=== PATIENT | male | born 1960 | race Caucasian/White ===

== ENCOUNTER 2018-02-26 09:01 | Day surgery (SDC) | payer OTHER ==
[2018-02-26] MEDS ORDERED: ROPIvacaine 0.5% 30 ML INJECTION (J2795 PER 1MG) (09:02)
[2018-02-26] MEDS ORDERED: dexameTHASONE 10 MG/1 ML VIAL PRES.FREE (J1100) (09:02)
[2018-02-26] MEDS: LR 1,000 ML IV ×3 (09:54→18:25)
[2018-02-26 09:56] LABS: BEDSIDE GLUCOSE 109 MG/DL (70-105)
[2018-02-26] MEDS ORDERED: MIDAZOLAM INJ 2 MG/2 ML VIAL (J2250) As Ordered ×2 (10:47→12:31)
[2018-02-26] MEDS ORDERED: fentaNYL 100 MCG/2 ML INJECTION (J3010) As Ordered (10:47)
[2018-02-26] MEDS: MIDAZOLAM INJ 2 MG/2 ML VIAL (J2250) IV (11:30)
[2018-02-26] MEDS: fentaNYL 100 MCG/2 ML INJECTION (J3010) IV ×5 (11:30→17:13)
[2018-02-26] MEDS ORDERED: LIDOCAINE 2% INJ 100 MG/5 ML SDV (FOR ANES.) As Ordered (12:31)
[2018-02-26] MEDS ORDERED: GLYCOPYRROLATE INJ 0.2 MG/ML 2 ML VIAL As Ordered (12:31)
[2018-02-26] MEDS ORDERED: NEOSTIGMINE 10 MG/10 ML VIAL (J2710) As Ordered (12:31)
[2018-02-26] MEDS ORDERED: METOCLOPRAMIDE INJ 10MG/2ML VIAL (J2765) As Ordered (12:31)
[2018-02-26] MEDS ORDERED: PROPOFOL 200 MG/20 ML VIAL As Ordered (12:31)
[2018-02-26] MEDS ORDERED: fentaNYL 250 MCG/5 ML INJECTION (J3010) As Ordered (12:31)
[2018-02-26] MEDS ORDERED: ROCURONIUM BROMIDE 50 MG/5 ML VIAL As Ordered ×2 (12:31→12:52)
[2018-02-26] MEDS ORDERED: dexameTHASONE 4 MG/ML 1ML VIAL (J1100) As Ordered (12:31)
[2018-02-26] MEDS ORDERED: ONDANSETRON 4MG/2ML VIAL (J2405) As Ordered (12:31)
[2018-02-26] MEDS ORDERED: PHENYLephrine HCL 500 MCG/5 ML (100MCG/ML) SYRINGE (J2370) As Ordered (12:59)
[2018-02-26] MEDS: EPINEPHrine 1MG/ML INJ 30ML MD-VIAL As Ordered (13:04)
[2018-02-26] MEDS ORDERED: DESFLURANE 240 ML INHALANT As Ordered (14:26)
[2018-02-26] MEDS ORDERED: ALBUTEROL SULFATE 2.5 MG/0.5 ML INH NEB SOLN As Ordered (15:29)
[2018-02-26] MEDS: ALBUTEROL SULFATE 2.5 MG/0.5 ML INH NEB SOLN INH (15:30)
[2018-02-26] MEDS: NORCO, ANEXSIA 5/325MG TABLET (HYDROcodone/ACETAMINOPHEN) PO (15:55)
[2018-02-26] MEDS ORDERED: ONDANSETRON 4MG/2ML VIAL (J2405) IV (16:15)
[2018-02-26] MEDS ORDERED: NORCO, ANEXSIA 5/325MG TABLET (HYDROcodone/ACETAMINOPHEN) PO (16:30)
[2018-02-26] MEDS ORDERED: MORPHINE 4 MG/ML 1ML VIAL/SYRINGE (J2270) IV (16:30)
[2018-02-26] MEDS ORDERED: IPRATROPIUM 0.5MG/ALBUTEROL 2.5MG INH SOL UD 3ML (DUONEB)(J7620) NEB (17:00)
[2018-02-26] MEDS ORDERED: DEXTROSE 50% 50 ML SYRINGE IV (17:00)
[2018-02-26] MEDS ORDERED: GLUCAGON FOR INJ 1 MG VIAL (J1610) SC (17:00)
[2018-02-26] MEDS ORDERED: GLUCOSE 4 GM CHEW TABLET PO (17:00)
[2018-02-26 18:02] LABS: BEDSIDE GLUCOSE 154 MG/DL (70-105)
[2018-02-26] MEDS: HumaLOG INSULIN (NovoLOG) PER UNIT SC ×2 (18:24→20:29)
[2018-02-26 20:06] LABS: BEDSIDE GLUCOSE 270 MG/DL (70-105)
[2018-02-26] MEDS: SENOKOT S TAB PO (20:29)
[2018-02-26] MEDS: LISINOPRIL 20 MG TAB PO (20:30)
[2018-02-26] MEDS: FLUTICASONE PROP 0.05% NASAL SPRAY 16 GM (FLONASE) (20:30)
[2018-02-26] MEDS: IPRATROPIUM 0.5MG/ALBUTEROL 2.5MG INH SOL UD 3ML (DUONEB)(J7620) NEB (20:42)
[2018-02-26] MEDS: ADVAIR HFA 230/21MCG INHALER INH (20:42)
[2018-02-27] MEDS: IPRATROPIUM 0.5MG/ALBUTEROL 2.5MG INH SOL UD 3ML (DUONEB)(J7620) NEB ×3 (01:17→08:09)
[2018-02-27] MEDS: LR 1,000 ML IV (03:45)
[2018-02-27] MEDS: NORCO, ANEXSIA 5/325MG TABLET (HYDROcodone/ACETAMINOPHEN) PO ×2 (05:44→09:44)
[2018-02-27 06:01] LABS: BEDSIDE GLUCOSE 122 MG/DL (70-105)
[2018-02-27] MEDS: ADVAIR HFA 230/21MCG INHALER INH ×2 (08:09→08:11)
[2018-02-27] MEDS: CETIRIZINE (ZyrTEC) 10 MG TAB PO (09:00)
[2018-02-27] MEDS ORDERED: LISINOPRIL 20 MG TAB PO (09:00)
[2018-02-27] MEDS: HumaLOG INSULIN (NovoLOG) PER UNIT SC (09:01)
[2018-02-27] MEDS: SENOKOT S TAB PO (09:43)
== END 2018-02-27 12:00 | disposition home or self-care (01) ==
LOC: M SDC 09:01 → M MS5PR 17:00
DX: S46.011A Strain of muscle(s) and tendon(s) of the rotator cuff of right shoulder, initial encounter (principal); W01.0XXA Fall on same level from slipping, tripping and stumbling without subsequent striking against object, initial encounter; Y92.513 Shop (commercial) as the place of occurrence of the external cause; Y93.9 Activity, unspecified; Y99.0 Civilian activity done for income or pay; I10 Essential (primary) hypertension; G47.33 Obstructive sleep apnea (adult) (pediatric); E11.9 Type 2 diabetes mellitus without complications; J45.909 Unspecified asthma, uncomplicated; E78.5 Hyperlipidemia, unspecified; E66.9 Obesity, unspecified; Z79.899 Other long term (current) drug therapy
CPT/HCPCS: 29827

== ENCOUNTER → 2023-01-30 | Outpatient (CLI) | payer OTHER ==
[~2023-01-30] MED LIST: ACET650T61 PO; ADV500INH INH; ATOR1TAB21; CETI10TA; FLUT50SP17; LISI20TA33; METF500T13; NAPR-885; TYLE1TAB5 PO; VENTAER INH
[2023-01-30 15:19] LABS: BASO # 0.1 10^3/uL (0.0-0.2); BASO % 0.7 % (0.0-1.0); EOS # 0.1 10^3/uL (0.0-0.5); EOS % 1.7 % (0.0-3.0); HEMATOCRIT 45.7 % (42.0-52.0); HEMOGLOBIN 14.7 g/dl (13.5-17.5); LYMPH # 2.1 10^3/uL (1.5-5.0); LYMPH % 24.4 % (24.0-44.0); MEAN CORPUSCULAR HGB CONC 32.2 g/dl (32.0-36.5); MEAN CORPUSCULAR VOLUME 90.1 fl (80.0-96.0); MONO # 0.8 10^3/uL (0.0-0.8); MONO % 9.6 % (2.0-8.0); NEUTROPHILS # 5.3 10^3/uL (1.5-8.5); NEUTROPHILS % 63.4 % (36.0-66.0); PLATELET COUNT, AUTOMATED 198 10^3/uL (150-450); RED BLOOD COUNT 5.07 10^6/uL (4.30-6.10); WHITE BLOOD COUNT 8.4 10^3/uL (4.0-10.0)
[2023-01-30 15:38] LABS: ALBUMIN 3.3 G/DL (3.2-5.2); ALKALINE PHOSPHATASE 94 U/L (46-116); ALT/SGPT 40 U/L (7.0-40); AST/SGOT 31 U/L (<34); BILIRUBIN,TOTAL 0.5 MG/DL (0.3-1.2); BLOOD UREA NITROGEN 14 MG/DL (9-23); CALCIUM LEVEL 9.6 MG/DL (8.3-10.6); CARBON DIOXIDE LEVEL 25 MMOL/L (20-31); CHLORIDE LEVEL 105 MMOL/L (98-107); CREATININE FOR GFR 0.64 MG/DL (0.70-1.30); FREE THYROXINE INDEX 3.5 % (1.4-3.8); GLOMERULAR FILTRATION RATE > 60.0 (>49); GLUCOSE, FASTING 106 MG/DL (74-106); POTASSIUM SERUM 4.2 MMOL/L (3.5-5.1); RHEUMATOID FACTOR QUANT < 3.5 IU/ML (<14); SODIUM LEVEL 137 MMOL/L (136-145); T UPTAKE 23.5 % (22.5-37.0); THYROID STIMULATING HORMONE 3.681 uIU/ML (0.55-4.78); THYROXINE (T4) 14.8 UG/DL (4.5-10.9); TOTAL PROTEIN 6.7 G/DL (5.7-8.2); VITAMIN B12 LEVEL 245 PG/ML (211-911)
[2023-01-30 15:56] LABS: FOLATE 8.9 NG/ML (>5.4)
[2023-01-30 16:01] LABS: ERYTHROCYTE SEDIMENTATION RATE 38 mm/hr (0-20)
== END ==
LOC: M PLALAB 09:33
PROVIDERS: ATTEND Psychiatry & Neurology Neurology
DX: G62.9 Polyneuropathy, unspecified (principal); E07.9 Disorder of thyroid, unspecified; M35.00 Sjogren syndrome, unspecified